=== PATIENT | female | born 1990 | race Two or more races ===

== ENCOUNTER 2023-12-03 09:23 | Emergency (ER) | payer MEDICAID, OTHER ==
[~2023-12-03] VITALS: Ht 154.9 cm; Wt 107.0 kg
[2023-12-03 10:38] VITALS: BP 123/88; PULSE 87; RESP 16; TEMP 97.5; O2SAT 97
[2023-12-03 12:07] LABS: COVID19 ANTIGEN SOFIA FIA NEGATIVE (NEGATIVE); Rapid Influenza A Negative (Negative)
[2023-12-03 12:08] LABS: Rapid Influenza B Positive (Negative)
[2023-12-03] MEDS ORDERED: PROM1SOL4 PO (12:45)
[2023-12-03] MEDS ORDERED: TAMIFLU PO (12:45)
== END 2023-12-03 12:56 | disposition home or self-care (01) ==
LOC: ER 09:23
DX: J10.1 Influenza due to other identified influenza virus with other respiratory manifestations (principal); Z79.899 Other long term (current) drug therapy; Z20.822 Contact with and (suspected) exposure to COVID-19
CPT/HCPCS: 36415; 87426; 87804

== ENCOUNTER 2024-07-25 19:35 | Emergency (ER) | payer MEDICAID ==
[~2024-07-25] VITALS: Ht 154.9 cm; Wt 104.6 kg
[~2024-07-25 19:35] MED LIST: PROM1SOL4 PO; TAMIFLU PO
[2024-07-25 20:24] LABS: Urine Bacteria None Seen /hpf (None Seen)
[2024-07-25 20:34] LABS: Urine Blood Negative /uL (Negative); Urine Clarity Turbid (Clear); Urine Color Light-Yellow (Yellow); Urine Mucus FEW (None Seen); Urine Protein, UAD TRACE (Negative); Urine Specific Gravity 1.023 (1.001-1.035); Urine Urobilinogen Normal (Negative); Urine WBC 4 /hpf (0 - 5); Urine pH 5.5 (5.0-9.0)
[2024-07-25 21:34] LABS: Basophils # (auto) 0 10 ^3/uL (0-0.2); Basophils % (auto) 0.1 % (0.0-2.0); Eosinophils # (auto) 0 10 ^3/uL (0-0.8); Eosinophils % (auto) 0.2 % (0.0-7.0); Hematocrit 35.6 % (36.0-46.0); Hemoglobin 11.5 g/dL (12.2-16.2); Lymphocytes # (auto) 0.8 10 ^3/uL (0.4-5.4); Lymphocytes % (auto) 7.3 % (10.0-50.0); Mean Corpuscular Hemoglobin 23.2 pg (28.0-32.0); Mean Corpuscular Hgb Conc. 32.4 g/dL (32.0-36.0); Mean Corpuscular Volume 71.7 fL (80.0-100.0); Monocytes # (auto) 0.4 10 ^3/uL (0-1.3); Monocytes % (auto) 3.4 % (0.0-12.0); Neutrophils # (auto) 9.8 10 ^3/uL (1.6-8.6); Nucleated Red Blood Cells % 0.1 %; Platelet Count (auto) 389 10^3/uL (140-450); Red Blood Cells 4.97 10^6/uL (4.0-5.20); Red Cell Distribution Width 17.2 % (11.8-14.3)
[2024-07-25] MEDS: PANTOPRAZOLE 40 MG TAB PO ONE (21:49)
[2024-07-25] MEDS: ONDANSETRON ODT 4 MG TAB PO ONE (21:50)
[2024-07-25 21:52] LABS: Alanine Aminotransferase 13 U/L (7-40); Albumin 4.6 g/dL (3.2-4.8); Alkaline Phosphatase 124 U/L (46-116); Anion Gap 6 (5-15); Aspartate Aminotransferase < 8 U/L (13-40); Blood Urea Nitrogen 7 mg/dL (9-23); Calcium 9.4 mg/dL (8.7-10.4); Carbon Dioxide 23 mmol/L (20-31); Chloride 104 mmol/L (98-107); Glucose 106 mg/dL (74-106); Lipase 32 U/L (12-53); Potassium 3.9 mmol/L (3.5-5.1); Sodium 133 mmol/L (136-145)
[2024-07-25 21:53] VITALS: BP 122/70; PULSE 105; RESP 20; O2SAT 97
[2024-07-25 21:53] LABS: Bilirubin, Total 0.3 mg/dL (0.2-1.0); Total Protein 7.6 g/dL (5.7-8.2)
== END 2024-07-25 21:54 | disposition home or self-care (01) ==
LOC: ER 19:35
DX: K29.00 Acute gastritis without bleeding (principal); F17.210 Nicotine dependence, cigarettes, uncomplicated; K76.0 Fatty (change of) liver, not elsewhere classified; Z87.442 Personal history of urinary calculi; Z32.02 Encounter for pregnancy test, result negative
CPT/HCPCS: 36415; 76705; 80053; 81001; 81025; 83690; 85025; 99284; Q0162